=== PATIENT | female | born 1945 | race Caucasian/White ===

== ENCOUNTER → 2024-10-29 | Outpatient (CLI) | payer MEDICARE, SELFPAY ==
--- NOTE | 2024-10-29 09:45 | XR_ITS ---
Examination: Screening digital mammography, bilateral Computer aided detection 3-D breast Tomosynthesis, bilateral Date and time of exam: October 29, 2024 1002 hours Compared to mammograms dating to April 14, 2018 Indication: Screening Technique: Nonmagnified MLO, CC views of the breasts to been obtained, reconstructed from 3-D Tomosynthesis images. R2 computer aided detection program utilized for evaluation of suspicious masses and/or abnormal calcifications. 3-D Tomosynthesis images obtained. Findings: Scattered areas of fibroglandular density. Benign calcifications. No interval suspicious masses Impression: BI-RADS category II: Benign Findings. Recommend 1 year follow-up mammogram.
[2024-10-29 10:36] LABS: Basophils # (Auto) 0.1 Thou/mm3 (0.0-0.2); Basophils % (Auto) 1 % (0-2.5); Eosinophils # (Auto) 0.2 Thou/mm3 (0.0-0.5); Eosinophils % (Auto) 3 % (0-10); Hematocrit 37.5 % (36.0-46.0); Hemoglobin 12.6 g/dL (12.0-16.0); Immature Granulocytes % (Auto) 0 % (0-0); Immature Granulocytes Auto 0.03 Thou/mm3 (0.00-0.00); Lymphocytes # (Auto) 2.2 Thou/mm3 (1.0-4.8); Lymphocytes % (Auto) 30 % (10-50); Mean Corpuscular HGB Conc 33.6 g/dl (31.0-37.0); Mean Corpuscular Hemoglobin 28.1 pg (25.0-35.0); Mean Corpuscular Volume 84 fL (80-100); Monocytes % (Auto) 13 % (0-12); Neutrophils # (Auto) 3.9 Thou/mm3 (1.8-7.7); Neutrophils % (Auto) 52 % (37-80); Nucleated Red Blood Cell % 0 /100 WBC (0); Platelet Count 234 Thou/mm3 (140-440); RDW Standard Deviation 42.4 fL (36.4-46.3); Red Blood Count 4.48 Miln/mm3 (4.00-5.20); White Blood Count 7.4 Thou/mm3 (3.6-11.0)
[2024-10-29 10:50] LABS: T4 (Thyroxine) 7.1 mcg/dL (4.5-10.9)
[2024-10-29 10:57] LABS: Alanine Aminotransferase 28 U/L (10-49); Albumin, Serum 4.3 gm/dL (3.4-4.8); Albumin/Globulin Ratio 1.7 (1.2-2.2); Alkaline Phosphatase 83 U/L (46-116); Anion Gap 9 (7-16); Aspartate Amino Transferase 32 U/L (0-34); BUN/Creatinine Ratio 18 Ratio (12-20); Bilirubin,Total 0.4 mg/dL (0.3-1.2); Blood Urea Nitrogen 20 mg/dL (9-23); Calcium 9.1 mg/dL (8.3-10.6); Calcium (Corrected) 9.1 mg/dL (8.5-10.1); Carbon Dioxide 26.2 mMol/L (20.0-31.0); Cardiac Risk Estimate 3.7 RATIO (3.7-5.6); Chloride 102 mMol/L (98-107); Cholesterol 195 mg/dL (132-200); Creatinine (Component) 1.1 mg/dL (0.6-1.3); Globulin 2.5 gm/dL (2.3-3.5); Glucose 91 mg/dL (74-106); HDL Cholesterol 53 mg/dL (40-60); LDL Cholesterol,Calculated 110 mg/dL (0-130); Osmolality,Calculated 276 (275-295); Potassium 4.4 mMol/L (3.4-5.1); Sodium 137 mMol/L (136-145); Thyroid Stimulating Hormone 2.26 uIU/mL (0.55-4.78); Total Protein 6.8 gm/dL (5.7-8.2); Triglycerides 158 mg/dL (30-150); eGFR 51 See Note
== END | disposition home or self-care (01) ==
LOC: CDIM 09:50 → COPL 10:09
PROVIDERS: Referring Provider Family Medicine; Visit Provider Radiology Diagnostic Radiology
DX: Z12.31 Encounter for screening mammogram for malignant neoplasm of breast (principal); R92.8 Other abnormal and inconclusive findings on diagnostic imaging of breast; R92.323 Mammographic fibroglandular density, bilateral breasts; I12.9 Hypertensive chronic kidney disease with stage 1 through stage 4 chronic kidney disease, or unspecified chronic kidney disease; N18.1 Chronic kidney disease, stage 1; N95.1 Menopausal and female climacteric states; K21.9 Gastro-esophageal reflux disease without esophagitis; N39.490 Overflow incontinence
CPT/HCPCS: 36415; 77063; 77067; 80053; 80061; 84436; 84443; 85025

== ENCOUNTER → 2024-11-04 | Outpatient (CLI) | payer MEDICARE, SELFPAY ==
[2024-11-08 07:36] LABS: Fecal Globin Result NOT DETECTED (NOT DETECTED)
== END | disposition home or self-care (01) ==
LOC: SLDO 11:57
PROVIDERS: PCP Family Medicine; Referring Provider Family Medicine; Visit Provider Family Medicine
DX: Z12.11 Encounter for screening for malignant neoplasm of colon (principal)
CPT/HCPCS: 82274; G0328

== ENCOUNTER 2025-06-02 09:50 | Inpatient (IN) | payer MEDICARE, SELFPAY ==
[2025-06-02] VITALS (12 sets, daily range): BP systolic 130–156; BP diastolic 63–97; PULSE 74–87; RESP 17–30; TEMP 36.5–36.9; O2SAT 92–95; BMI 30.1; BMI 30.4
--- NOTE | 2025-06-02 10:00 | EKG_ITS ---
[facility] (Formerly [facility]) Test Date: 2025-06-02 Pat Name: OLIVER MEYERS Department: Room: - Gender: Female [employer]: : 1946-05-21 Requested By: Kaleb Reynaga Order Number: [id number] Reading MD: Kaleb Reynaga Measurements Intervals [place] Rate: 72 P: 45 AK: 144 QRS: 31 QRSD: 89 T: 36 QT: 388 QTc: 426 Interpretive Statements SINUS RHYTHM No previous ECG available for comparison /store/S0/[id number].pdf
[2025-06-02] MEDS: SODIUM CHLORIDE 0.9% 1000 ML 1,000 ML 100 ML IV (10:25)
--- NOTE | 2025-06-02 10:29 | XR_ITS ---
Examination: CT brain head without contrast. 2-D sagittal coronal reconstructions Date and time of exam: 06/02/2025 at 10:44 a.m. CTDI: vol (mGy): 50.1 DLP: (mGycm): 978 CLINICAL HISTORY: Stroke alert, syncope with traumatic fall Technique: Multiple CT axial sections of the brain have been obtained, 5 mm slice thickness. Contrast has not been administered. 2-D sagittal, coronal reconstructions have been obtained Low dose protocols were performed. One or more of the following dose reduction techniques were used; automated exposure control, adjustment of the mA and/or KV according to patient size, use of iterative reconstruction technique. Findings: There is fairly prominent dilatation of the lateral and third ventricles, considered slightly prominent for this patient's age of 79 years. There are small calcifications in the globus pallidus bilaterally, and normal degenerative finding. There is very widespread and extensive patchy decreased density noted throughout the periventricular and subcortical white matter bilaterally. There is extensive atherosclerotic vascular calcification in the distal vertebral arteries and in both internal carotid arteries in the region of the cavernous sinus The paranasal sinuses and mastoids and inner ear structures appear normal. However there are exceptionally tiny dependent fluid collections noted in both right and left sphenoid sinuses, of doubtful concern. Pituitary gland appears normal. Impression: 1. There is prominent dilatation of the lateral and third ventricles, they are in normal midline position. 2 there is widespread patchy abnormal decreased density noted involving the entire cerebral white matter. I do not see anything suggestive for an acute infarct however. These findings relate to extensive microvascular angiopathy in this 79-year-old patient.. There is also heavy vascular calcification in the internal carotid artery siphons and the distal vertebral arteries bilaterally. 3 study is otherwise negative, no definite evidence of an acute infarct can be identified
--- NOTE | 2025-06-02 10:29 | XR_ITS ---
Examination: CTA carotids with intravenous contrast CTA brain, head with intravenous contrast. 2-D sagittal, coronal reconstructions. 3-D reconstructions. Exam date and time: 06/02/2025 at 10:40 8:00 a.m. CTDI: vol (mGy) 17 point DLP: (mGycm) 444 CLINICAL INDICATION: Syncope after traumatic fall. Technique: Multiple CTA axial brain, head carotid images post intravenous contrast injection 75 cc, [id number]. 2-D sagittal, coronal reconstructions. 3-D reconstructions, 3-D post processing including vascular maximum intensity projection images. Low dose protocols were performed. One or more of the following dose reduction techniques were used; automated exposure control, adjustment of the mA and/or KV according to patient size, use of iterative reconstruction technique. Findings: The origin of the carotid and vertebral arteries is well seen and normal on both sides. The common carotid arteries in the neck appear normal. At the carotid artery bifurcations in the neck, on the right side there is major very extensive atherosclerotic calcification noted. I am not able to identify any significant narrowing, but the appearance here is quite worrisome. There is also prominent although less significant atherosclerotic calcification at the bifurcation of the left common carotid artery. However I am not able to see any definite area of significant narrowing on these images. The internal carotid arteries appear normal throughout the upper half of the neck, then within the cavernous sinus there is prominent atherosclerotic calcifications on both sides, no obvious significant narrowing is noted. Within the head, the proximal and peripheral portions of the anterior and middle cerebral arteries is entirely normal. In the posterior circulation, the vertebral arteries extend upwards through the foramina transversarium in a normal fashion, and a come together at the base of the clivus forming the basilar artery. The basilar artery and its branches all appear normal in the posterior fossa. IMPRESSION: 1. Within the cervical region, the only abnormality seen are very heavy the atherosclerotic calcifications at the bifurcation of the common carotid arteries on both sides. I am not able to see any definite vascular narrowing, however particularly on the right side, with this extent of atherosclerotic calcification it is still felt to be a potentially worrisome finding. 2. Within the head, likewise do not see any areas of abnormal vascular narrowing anywhere, however there is exceedingly heavy atherosclerotic calcification of both the right and left internal carotid arteries in the cavernous sinus. However I'm not able to see any definite abnormal narrowing of these vessels. 3. No abnormalities are seen at all in the posterior circulation, including the vertebral arteries in the neck and the basilar arteries and its branches in the posterior fossa
[2025-06-02 10:48] LABS: Basophils # (Auto) 0.0 Thou/mm3 (0.0-0.2); Basophils % (Auto) 0 % (0-2.5); Eosinophils # (Auto) 0.0 Thou/mm3 (0.0-0.5); Eosinophils % (Auto) 0 % (0-10); Hematocrit 23.1 % (36.0-46.0); Immature Granulocytes Auto 0.02 Thou/mm3 (0.00-0.00); Lymphocytes # (Auto) 0.8 Thou/mm3 (1.0-4.8); Lymphocytes % (Auto) 29 % (10-50); Mean Corpuscular HGB Conc 32.0 g/dl (31.0-37.0); Mean Corpuscular Hemoglobin 28.4 pg (25.0-35.0); Mean Corpuscular Volume 89 fL (80-100); Monocytes # (Auto) 0.4 Thou/mm3 (0.0-0.8); Monocytes % (Auto) 14 % (0-12); Neutrophils # (Auto) 1.5 Thou/mm3 (1.8-7.7); Neutrophils % (Auto) 56 % (37-80); Nucleated Red Blood Cell # 0.00 Thou/mm3 (0.00-0.00); Nucleated Red Blood Cell % 0 /100 WBC (0); Platelet Count 85 Thou/mm3 (140-440); RDW Standard Deviation 45.5 fL (36.4-46.3); Red Blood Count 2.61 Miln/mm3 (4.00-5.20); White Blood Count 2.7 Thou/mm3 (3.6-11.0)
[2025-06-02 10:55] LABS: Hemoglobin 7.4 g/dL (12.0-16.0)
[2025-06-02 11:00] LABS: B-Type Natriuretic Peptide 52 pg/mL (0-100)
[2025-06-02 11:03] LABS: Alanine Aminotransferase 39 U/L (10-49); Albumin, Serum 4.5 gm/dL (3.4-4.8); Albumin/Globulin Ratio 1.7 (1.2-2.2); Alcohol, Blood Medical < 3.0 mg/dL (0-10.0); Alkaline Phosphatase 65 U/L (46-116); Anion Gap 11 (7-16); Aspartate Amino Transferase 60 U/L (0-34); BUN/Creatinine Ratio 10 Ratio (12-20); Bilirubin,Total 0.3 mg/dL (0.3-1.2); Blood Urea Nitrogen 13 mg/dL (9-23); Calcium 9.1 mg/dL (8.3-10.6); Calcium (Corrected) 9.1 mg/dL (8.5-10.1); Carbon Dioxide 27.7 mMol/L (20.0-31.0); Chloride 98 mMol/L (98-107); Creatinine (Component) 1.3 mg/dL (0.6-1.3); Estimated Creatinine Clearance 35.1 mL/min (>60); Globulin 2.6 gm/dL (2.3-3.5); Glucose 135 mg/dL (74-106); INR 1.0 (0.9-1.3); Magnesium 1.8 mg/dL (1.6-2.6); Osmolality,Calculated 275 (275-295); Partial Thromboplastin Time 27.8 Seconds (22.0-36.0); Potassium 4.4 mMol/L (3.4-5.1); Prothrombin Time 10.5 Seconds (9.0-12.2); Sodium 137 mMol/L (136-145); Total Protein 7.1 gm/dL (5.7-8.2); Troponin I < 0.020 ng/mL (0.0-0.045); eGFR 42 See Note
--- NOTE | 2025-06-02 11:19 | PD.TNEURO ---
Tele Neuro Consultation Consultation Date 06/02/25 Most Recent Vital Signs Last Vital Signs Temp 97.7 F 06/02/25 10:11 Pulse 74 06/02/25 10:48 Resp 17 06/02/25 10:11 BP 130/74 06/02/25 10:11 Pulse Ox 94 L 06/02/25 10:11 O2 Del Method Room Air 06/02/25 10:11 Laboratory-Coagulation Panel PT 10.5 Seconds (9.0-12.2) 06/02/25 10:37 INR 1.0 (0.9-1.3) 06/02/25 10:37 APTT 27.8 Seconds (22.0-36.0) 06/02/25 10:37 Consultation Narrative [facility] Tele[facility]rology Consult [facility] Patient Name:???Susie Rhodes Date of :???05/21/1946 Identification Number:??? Date of Service:???06/02/2025 10:26:13 Diagnosis:?R55 - Syncope (blackout, fainting, vasovagal attack) ?R29.6 - Fall Repeated Impression: ?Patient came with syncopal episodes. She has been dealing with flu for the past 5 to 7 days. Appears weak all over. Is very hard to determine whether she has any clear-cut focal deficits but on bedside testing she was able to lift both arms and legs off the bed there was no drift. The timeline of symptoms is also unclear. She would need to be admitted for further workup of syncope/TIA. I would recommend getting an MRI of the head and neurology follow-up. Will also recommend starting her on an aspirin 81 daily. She would also need metabolic workup to rule out other causes. It is important to note that this was the initial consultation for stroke alert and rest of the workup would be by in-house team. Our recommendations are outlined below. Recommendations: ? Stroke/Telemetry Floor ? Neuro Checks (Q2) ? Bedside Swallow Eval ? DVT Prophylaxis ? IV Fluids, Normal Saline ? Head of Bed 30 Degrees ? Euglycemia and Avoid Hyperthermia (PRN Acetaminophen) ? Initiate or continue Aspirin 81 MG daily ? Antihypertensives PRN if Blood pressure is greater than 220/120 or there is a concern for End organ damage/contraindications for permissive HTN. If blood pressure is greater than 220/120 give labetalol PO or IV or Vasotec IV with a goal of 15% reduction in BP during the first 24 hours. Sign Out: ? Discussed with Emergency Department Provider Advanced Imaging: CTA Head and Neck Completed. LVO:No Patient is not a candidate for FUENTES Metrics: Last Known Well: Unknown Arrival Time: 06/02/2025 09:50:00 Activation Time: 06/02/2025 10:26:13 Initial Response Time: 06/02/2025 10:28:00Symptoms: Syncope/falls. Initial patient interaction: 06/02/2025 10:49:20 NIHSS Assessment Completed: 06/02/2025 10:58:22Patient is not a candidate for Thrombolytic. Thrombolytic Medical Decision: 06/02/2025 10:58:24Patient was not deemed candidate for Thrombolytic because of following reasons: LKW outside 4.[address] Head: CT head unremarkable for acute infarction or hemorrhage per Radiology: Reported as negative Primary Provider Notified of Diagnostic Impression and Management Plan on: 06/02/2025 10:54:36 History of Present Illness:Patient is a 79 year old Female. Patient was brought by private transportation with symptoms of Syncope/falls. 79-year-old female with history of hypertension and macular degeneration, who lives by herself has been dealing with flu for the past 5 to 7 days. Has been feeling very weak and tired. Reportedly had 2 syncopal episodes in the past few days. Because of this she was brought into the hospital. There was a questionable facial droop and left leg weakness noted. We do not have a clear-cut timeline for the symptoms. Patient lives by herself and was brought in by the [id number]. Patient denies any focal weakness. She feels globally weak. Denies any chest pain or palpitation. Denies any speech or swallowing problems. Past Medical History: ?Hypertension Other PMH:? Macular degeneration Medications: No Anticoagulant use? No Antiplatelet use Reviewed EMR for current medications Allergies:? Reviewed Social History: Patient Is: Single Smoking: No Alcohol Use: No Drug Use: No Family History: There is no family history of premature cerebrovascular disease pertinent to this consultation ROS : 14 Points Review of Systems was performed and was negative except mentioned in HPI. Past Surgical History: There Is No Surgical History Contributory To Today?s Visit Examination: BP(130/74),?Pulse(75), 1A: Level of Consciousness - Alert; keenly responsive?+ 0 1B: Ask Month and Age - Both Questions Right?+ 0 1C: Blink Eyes & Squeeze Hands - Performs Both Tasks?+ 0 2: Test Horizontal Extraocular Movements - Normal?+ 0 3: Test Visual Taylor - No Visual Loss?+ 0 4: Test Facial Palsy (Use Grimace if Obtunded) - Normal symmetry?+ 0 5A: Test Left Arm Motor Drift - No Drift for 10 Seconds?+ 0 5B: Test Right Arm Motor Drift - No Drift for 10 Seconds?+ 0 6A: Test Left Leg Motor Drift - No Drift for 5 Seconds?+ 0 6B: Test Right Leg Motor Drift - No Drift for 5 Seconds?+ 0 7: Test Limb Ataxia (FNF/Heel-Welsh) - No Ataxia?+ 0 8: Test Sensation - Normal; No sensory loss?+ 0 9: Test Language/Aphasia - Normal; No aphasia?+ 0 10: Test Dysarthria - Normal?+ 0 11: Test Extinction/Inattention - No abnormality?+ 0 NIHSS Score:?0 NIHSS Free Text :?Global weakness Pre-Morbid Modified Socrates Scale: 1 Points = No significant disability despite symptoms; able to carry out all usual duties and activities Spoke with :?Dr Cochran This consult was conducted in real time using interactive audio and video technology. Patient was informed of the technology being used for this visit and agreed to proceed. Patient located in hospital and provider located at home/office setting. Patient is being evaluated for possible acute neurologic impairment and high probability of imminent or life-threatening deterioration. I spent total of 45 minutes providing care to this patient, including time for face to face visit via telemedicine, review of medical records, imaging studies and discussion of findings with providers, the patient and/or family. Dr David Reynolds [facility] For Inpatient follow-up with [facility] physician please call [facility] at . As we are not an outpatient service for any post hospital discharge needs please contact the hospital for assistance. If you have any questions for the [facility] physicians or need to reconsult for clinical or diagnostic changes please contact us via [facility] at . Non-radiologist review of imaging performed to assist with emergent clinical decision-making. Remote physician workstations do not possess the same resolution, calibration, or diagnostic capabilities as hospital-based radiology reading stations, and formal radiologist read is necessary. Signature :Isaura Reynolds
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
[2025-06-02 13:57] LABS: Collection Type, Urine Catheter
[2025-06-02 14:12] LABS: Amphetamine/Methamp Scrn,U Negative (Negative); Barbiturate Screen,Urine Negative (Negative); Benzodiazepines Screen,Urine Negative (Negative); Benzoylecgonine Screen, Ur Negative (Negative); Fentanyl Screen,Urine Negative (Negative); Opiate Screen,Urine Negative (Negative); THC Screen,Urine Negative (Negative)
[2025-06-02 14:19] LABS: Bilirubin,Urine Negative (Negative); Blood,Urine Negative (Negative); Clarity,Urine Clear (Clear/Hazy); Color,Urine Lt-Yellow (Lt Yel-Yel); Glucose, Urine Negative (Negative); Ketones,Urine Trace (Negative); Leukocyte Esterase,Urine Negative (Negative); Nitrite,Urine Negative (Negative); PH,Urine 7.0 (5.0-7.0); Protein,Urine Negative (Neg - Trace); RBC,Urine 6 /hpf (0-3); Squamous Epithelial Cell,Urine 2 /hpf (0-5); Urobilinogen,Urine Negative mg/dL (0.0-1.0); WBC,Urine 1 /hpf (0-5)
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
[2025-06-02 14:31] LABS: Specific Gravity,Urine 1.010 (1.001-1.035)
--- NOTE | 2025-06-02 14:40 | ECHO_ITS ---
Patient Info Name: Susie Rhodes Age: 79 years : 1945 Gender: Female Ht: 160 cm Wt: 77 kg BSA: 1.88 m2 BP: 159 / 78 mmHg HR: 77 bpm Exam Date: 06/03/2025 7:08 AM Admit Date: 06/02/2025 Site: [facility] Room Number: [id number] Patient Status: I Exam Type: CA echo doppler complete Dyeing Machine Back Tender: Blanche Danielle Ordering Physician: Steve Meehan Study Info Indications syncope workup - Primary Location: [id number] Left Ventricular Outflow Tract Name Value Normal LVOT 2D LVOT Diameter 1.9 cm LVOT Doppler LVOT Peak Velocity 141 cm/s LVOT Mean Gradient 4 mmHg LVOT VTI 34 cm LVOT VTI/AV VTI Ratio 0.4 LVOT Stroke Volume 97 ml Pulmonic Valve Name Value Normal PV Doppler PV Peak Velocity 132 cm/s Mitral Valve Name Value Normal MV Doppler MV Mean Gradient 6 mmHg MV Decel York 793 cm/s2 MV PHT 63 ms MV Area (PHT) 3.5 cm2 4.0-5.0 MV Area (Cont Eq VTI) 1.5 cm2 MV Diastolic Function MV E Peak Velocity 173 cm/s MV A Peak Velocity 149 cm/s MV E/A 1.2 MV Annular TDI MV Septal e' Velocity 5.3 cm/s MV E/e' (Septal) 32.5 MV Lateral e' Velocity 4.2 cm/s MV E/e' (Lateral) 40.8 MV e' Average 4.79 cm/s MV E/e' (Average) 36.6 Tricuspid Valve Name Value Normal TV Regurgitation Doppler TR Peak Velocity 321 cm/s Estimated PAP/RSVP RA Pressure 3 mmHg <=5 PA Systolic Pressure 44 mmHg <36 RV Systolic Pressure 44 mmHg <36 Aortic Valve Name Value Normal AV 2D/MM AV Cusp Sep (MM) 1.0 cm AV Doppler AV Peak Velocity 321 cm/s AV Mean Gradient 24 mmHg AV VTI 84 cm AV Area (Cont Eq VTI) 1.2 cm2 >=3.0 AV Area (Cont Eq Earl) 1.2 cm2 AV DI (Earl) 0.44 AV Regurgitation 2D LVOT Area 2.8 cm2 AV Regurgitation Doppler AR Decel [place] 218 cm/s2 AR PHT 431 ms Ventricles Name Value Normal LV Dimensions 2D/MM IVS Diastolic Thickness (2D) 1.0 cm 0.6-0.9 LVID Diastole (2D) 4.2 cm 3.8-5.2 LVIW Diastolic Thickness (2D) 1.1 cm 0.6-0.9 LVID Systole (2D) 3.1 cm 2.2-3.5 LVOT Diameter 1.9 cm LV Mass (2D Cubed) 147.00 g 67.00-162.00 LV Mass Index (2D Cubed) 78 g/m2 43-95 Relative Wall Thickness (2D) 0.52 <=0.42 IVS/LVIW Diastolic Thickness (2D) 0.91 0.00-1.50 LV Fractional Shortening/Ejection Fraction 2D/MM LV Fractional Shortening (2D) 26 % 27-45 LV EF (2D Teichholz) 52 % Atria Name Value Normal LA Dimensions LA Volume (4C A-L) 108 ml LA Volume (BP A-L) 104 ml Left Ventricle Left ventricular chamber dimension is normal. Left ventricular systolic function is normal with visually estimated ejection fraction of 55-60%. There is mild concentric hypertrophy noted in the left ventricle. Left ventricular segmental wall motion is normal. There is normal diastolic function in the left ventricle. Right Ventricle Right ventricular chamber dimension is normal. Right ventricular systolic function is normal. Left Atrium Left atrial chamber dimension is moderately enlarged. Right Atrium Right atrial chamber dimension is normal. Aortic Valve The aortic valve is trileaflet. There is moderate aortic valve sclerosis. There is moderate aortic valve stenosis with a peak velocity of 321 cm/s, mean gradient of 24 mmHg, and aortic valve area of 1.2 cm2. There is mild to moderate aortic valve regurgitation. Pulmonic Valve The pulmonic valve is normal. There is no pulmonic valve stenosis. There is trace pulmonic regurgitation. Mitral Valve The mitral valve has calcified leaflets. There is mild mitral valve stenosis. There is mild mitral valve regurgitation. Tricuspid Valve The tricuspid valve leaflets are normal. There is no tricuspid valve stenosis. There is mild tricuspid valve regurgitation. Pulmonary hypertension, estimated pulmonary arterial systolic pressure is 44 mmHg and systemic blood pressure of 159 mmHg in systole. Pericardium/Pleural The pericardium appears normal. There is no pericardial effusion. No pleural effusion visualized. Inferior Vena Cava Normal inferior vena cava with >50% collapse upon inspiration consistent with normal right atrial pressure, 3 mmHg. Aorta The aortic measurements are indexed to age and body surface area. The aortic root at the sinus of Valsalva is not well visualized. The prox ascending aorta is not well visualized. Summary 1. Left ventricle size is normal and systolic function is normal. Estimated ejection fraction is 55-60%. There is normal diastolic function. There is mild concentric hypertrophy noted. 2. Right ventricle chamber size is normal and systolic function is normal. Estimated RVSP is 44 mmHg with RAP 3. Estimated PHTN Moderate. 3. There is moderate aortic valve sclerosis with moderate stenosis and mild to moderate regurgitation. 4. The mitral valve has calcified leaflets. 5. There is mild mitral and tricuspid valve regurgitation. Mild MAC. 6. trace pulmonic valve regurgitation. 7. The left atrium is moderately enlarged. The right atrium is normal. 8. Normal IVC with estimated RA pressure 3 mmHg. Report Signatures Finalized by Tobin Hogan on 06/03/2025 10:32 AM
[2025-06-02] MEDS: ASPIRIN EC 81 MG TABEC PO (15:14)
[2025-06-02] MEDS: RINGERS LACTATED 1000 ML 1,000 ML 125 ML IV ×2 (15:14→23:30)
[2025-06-02] MEDS: HEPARIN SOD INJ 5000 UNIT/ML VIAL SC (15:15)
[2025-06-02 16:50] LABS: Ferritin 314 ng/mL (7.3-270.7)
[2025-06-02 16:53] LABS: Folate > 24.00 ng/mL (>5.38); Vitamin B12 1509 pg/mL (211-911)
[2025-06-02] MEDS: BENZONATATE 100 MG CAPSULE PO (18:43)
[2025-06-02] MEDS: ACETAMINOPHEN 325 MG TABLET 650 MG PO (21:15)
[2025-06-03] VITALS (10 sets, daily range): BP systolic 157–183; BP diastolic 76–90; PULSE 75–102; RESP 18–96; TEMP 36.2–36.6; O2SAT 94–100
--- NOTE | 2025-06-03 | XR_ITS ---
Examinations: MRI Brain without intravenous contrast. MRA brain without intravenous contrast. MRA carotids without intravenous contrast 3-D vascular reconstructions Date and time of exam: June 03, 2025, 0849 hours INDICATIONS: Syncopal episodes beginning yesterday stroke alert Technique: Multiple axial and sagittal images of the brain have been obtained MRA brain carotid images without contrast obtained, including 3-D postprocessing, vascular maximum intensity projection images Findings: [place] is not enlarged. The optic chiasm and infundibular stalk are not remarkable. Prepontine and interpeduncular cisterns are not enlarged. No localized enlargement of the medulla or daya. Fourth ventricle and cerebellar tonsils normal in position. Subacute hemorrhage is not seen. Fourth ventricle is midline. Mass in the cerebellopontine angle region is not evident. 7th and 8th nerve complexes exhibits symmetry. Globes are symmetrical with no retro-orbital mass. Increased white matter signal prominent Diffusion-weighted images demonstrate no focus of restricted diffusion Mass-effect upon the ventricular system is not identified. MRA carotid images no critical carotid stenoses. MRA brain images no cerebral large vessel occlusions Impression: Negative for acute hemorrhage mass effect or midline shift No acute infarct Prominent chronic microvascular white matter change No carotid stenoses No cerebral large vessel arterial occlusions
[2025-06-03] MEDS: HEPARIN SOD INJ 5000 UNIT/ML VIAL SC (01:59)
[2025-06-03] MEDS: BENZONATATE 100 MG CAPSULE 200 MG PO (02:01)
[2025-06-03 05:36] LABS: Basophils # (Auto) 0.0 Thou/mm3 (0.0-0.2); Basophils % (Auto) 0 % (0-2.5); Eosinophils # (Auto) 0.0 Thou/mm3 (0.0-0.5); Eosinophils % (Auto) 1 % (0-10); Hematocrit 36.0 % (36.0-46.0); Hemoglobin 12.1 g/dL (12.0-16.0); Immature Granulocytes Auto 0.01 Thou/mm3 (0.00-0.00); Immature Reticulocyte Fraction 9.0 % (3.0-15.9); Lymphocytes # (Auto) 2.0 Thou/mm3 (1.0-4.8); Lymphocytes % (Auto) 46 % (10-50); Mean Corpuscular HGB Conc 33.6 g/dl (31.0-37.0); Mean Corpuscular Hemoglobin 27.8 pg (25.0-35.0); Mean Corpuscular Volume 83 fL (80-100); Monocytes # (Auto) 0.8 Thou/mm3 (0.0-0.8); Monocytes % (Auto) 18 % (0-12); Neutrophils # (Auto) 1.5 Thou/mm3 (1.8-7.7); Neutrophils % (Auto) 35 % (37-80); Nucleated Red Blood Cell # 0.00 Thou/mm3 (0.00-0.00); Nucleated Red Blood Cell % 0 /100 WBC (0); Path Review Blood Smear Sent to Pathologist; Platelet Count 180 Thou/mm3 (140-440); RDW Standard Deviation 42.2 fL (36.4-46.3); Red Blood Count 4.35 Miln/mm3 (4.00-5.20); Reticulocyte % (Auto) 0.7 % (0.5-1.5); Reticulocyte Absolute Auto 28.7 Biln/L (25.0-75.0); Reticulocyte Hgb Content 30.0 pg (28.0-35.0); White Blood Count 4.2 Thou/mm3 (3.6-11.0)
[2025-06-03 05:55] LABS: Glucose Estimated Average 123 mg/dL (80-131); Hemoglobin A1C 5.9 % Hgb (4.8-6.0)
[2025-06-03 06:06] LABS: Alanine Aminotransferase 32 U/L (10-49); Albumin, Serum 3.8 gm/dL (3.4-4.8); Albumin/Globulin Ratio 1.7 (1.2-2.2); Alkaline Phosphatase 57 U/L (46-116); Anion Gap 11 (7-16); Aspartate Amino Transferase 46 U/L (0-34); BUN/Creatinine Ratio 16 Ratio (12-20); Bilirubin,Total 0.4 mg/dL (0.3-1.2); Blood Urea Nitrogen 16 mg/dL (9-23); Calcium 8.6 mg/dL (8.3-10.6); Calcium (Corrected) 8.8 mg/dL (8.5-10.1); Carbon Dioxide 26.9 mMol/L (20.0-31.0); Cardiac Risk Estimate 3.6 RATIO (3.7-5.6); Chloride 102 mMol/L (98-107); Cholesterol 150 mg/dL (132-200); Creatinine (Component) 1.0 mg/dL (0.6-1.3); Estimated Creatinine Clearance 45.9 mL/min (>60); Globulin 2.3 gm/dL (2.3-3.5); Glucose 83 mg/dL (74-106); HDL Cholesterol 42 mg/dL (40-60); LDH (Lactate Dehydrogenase) 242 U/L (120-246); LDL Cholesterol,Calculated 81 mg/dL (0-130); Magnesium 1.6 mg/dL (1.6-2.6); Osmolality,Calculated 279 (275-295); Phosphorous 2.8 mg/dL (2.4-5.1); Potassium 3.8 mMol/L (3.4-5.1); Sodium 140 mMol/L (136-145); Thyroid Stimulating Hormone 1.95 uIU/mL (0.55-4.78); Total Protein 6.1 gm/dL (5.7-8.2); Triglycerides 133 mg/dL (30-150); eGFR 58 See Note
[2025-06-03 06:27] LABS: Ferritin 321 ng/mL (7.3-270.7); Iron 30 mcg/dL (50-170); Percent Iron Saturation 12 % (20-55); Total Iron Binding Capacity 236 mcg/dL (250-425); Unsaturated Iron Binding 206 (225-295)
[2025-06-03 07:48] LABS: Influenza A Ag Positive; Influenza B Ag Negative
[2025-06-03 07:49] LABS: Respiratory Syncytial Virus Ag Negative (Negative)
--- NOTE | 2025-06-03 09:14 | PC.SS ---
Follow up note: Pending MRI, speech valuation, and PT evaluation. Pt is flu positive.
[2025-06-03] MEDS: ASPIRIN EC 81 MG TABEC PO (09:44)
[2025-06-03] MEDS: RINGERS LACTATED 1000 ML 1,000 ML 125 ML IV (09:48)
[2025-06-03] MEDS: Magnesium Sulfate 2 GM Ivpb 2 GM/50 ML BAG IV (09:48)
--- NOTE | 2025-06-03 11:33 | PC.SS ---
SS spoke to dtr, Sameera regarding patient's d/c plan. Pt is alert/oriented. Pt was admitted for Syncope. Dtr confirmed patient's demographic and contact information is correct on her facesheet. Pt resides alone. Pt ambulates independently without assistance or DME. Pt is ok with all ADLs. Patient utilizes [facility] on [address]. Dtr, Sameera Hughes is patient's medical decision maker if she is unable. Per dtr, pt has an advance directive at home. SS provided verbal d/c options for home or SNF. Daughter's choice is for pt to return home upon d/c. Dtr can provide transportation home. Per dtr, pt follows up with PCP every 6 months and next appointment is in June. Per dtr, pt is not diabetic. Per dtr, pt is not followed by HH but if physician orders HH her preference is HH. D/C plan: Return home Next of Kin: Liana Hughes, daughter, phone# [phone] PCP: Dr. Isabela Salamanca Address: Correct on facesheet
[2025-06-03 11:49] LABS: Cocci Serology, IgM Negative (Negative)
[2025-06-03] MEDS: LOSARTAN POTASSIUM 25 MG TABLET PO (12:02)
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
--- NOTE | 2025-06-03 16:23 | PC.PT ---
PT eval only. Patient is xI with bed mobility, transfers, and ambulation. Patient is safe to ambulate to the bathroom and in the halls with 1 family member and a surgical mask due to her (+) flu result. RN made aware.
[2025-06-03] MEDS: PROMETHAZINE/DM SYRUP 5 ML DOSE PO ×2 (16:35→22:25)
--- NOTE | 2025-06-03 16:48 | PC.NURSE ---
Dr. Whalen made aware of B/P 178/83 and no further orders received
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
[2025-06-03] MEDS: ACETAMINOPHEN 325 MG TABLET 650 MG PO (22:24)
[2025-06-04] VITALS (11 sets, daily range): BP systolic 148–168; BP diastolic 70–82; PULSE 68–104; RESP 15–23; TEMP 35.9–36.9; O2SAT 93–99
[2025-06-04] MEDS: PROMETHAZINE/DM SYRUP 5 ML DOSE PO ×4 (03:54→21:58)
[2025-06-04 05:59] LABS: Basophils # (Auto) 0.0 Thou/mm3 (0.0-0.2); Basophils % (Auto) 0 % (0-2.5); Eosinophils # (Auto) 0.0 Thou/mm3 (0.0-0.5); Eosinophils % (Auto) 1 % (0-10); Hematocrit 36.2 % (36.0-46.0); Hemoglobin 12.1 g/dL (12.0-16.0); Immature Granulocytes Auto 0.03 Thou/mm3 (0.00-0.00); Lymphocytes # (Auto) 1.6 Thou/mm3 (1.0-4.8); Lymphocytes % (Auto) 30 % (10-50); Mean Corpuscular HGB Conc 33.4 g/dl (31.0-37.0); Mean Corpuscular Hemoglobin 27.8 pg (25.0-35.0); Mean Corpuscular Volume 83 fL (80-100); Monocytes # (Auto) 0.8 Thou/mm3 (0.0-0.8); Monocytes % (Auto) 15 % (0-12); Neutrophils # (Auto) 2.8 Thou/mm3 (1.8-7.7); Neutrophils % (Auto) 53 % (37-80); Nucleated Red Blood Cell # 0.00 Thou/mm3 (0.00-0.00); Nucleated Red Blood Cell % 0 /100 WBC (0); Platelet Count 160 Thou/mm3 (140-440); RDW Standard Deviation 42.3 fL (36.4-46.3); Red Blood Count 4.35 Miln/mm3 (4.00-5.20); White Blood Count 5.3 Thou/mm3 (3.6-11.0)
[2025-06-04 06:28] LABS: Alanine Aminotransferase 34 U/L (10-49); Albumin, Serum 3.7 gm/dL (3.4-4.8); Albumin/Globulin Ratio 1.6 (1.2-2.2); Alkaline Phosphatase 58 U/L (46-116); Anion Gap 11 (7-16); Aspartate Amino Transferase 50 U/L (0-34); BUN/Creatinine Ratio 10 Ratio (12-20); Bilirubin,Total 0.4 mg/dL (0.3-1.2); Blood Urea Nitrogen 9 mg/dL (9-23); Calcium 8.5 mg/dL (8.3-10.6); Calcium (Corrected) 8.7 mg/dL (8.5-10.1); Carbon Dioxide 27.3 mMol/L (20.0-31.0); Chloride 103 mMol/L (98-107); Creatinine (Component) 0.9 mg/dL (0.6-1.3); Estimated Creatinine Clearance 51.0 mL/min (>60); Globulin 2.3 gm/dL (2.3-3.5); Glucose 92 mg/dL (74-106); Magnesium 1.7 mg/dL (1.6-2.6); Osmolality,Calculated 279 (275-295); Phosphorous 3.2 mg/dL (2.4-5.1); Potassium 3.9 mMol/L (3.4-5.1); Sodium 141 mMol/L (136-145); Total Protein 6.0 gm/dL (5.7-8.2); eGFR > 60 See Note
[2025-06-04] MEDS: ASPIRIN EC 81 MG TABEC PO (08:00)
[2025-06-04] MEDS: LOSARTAN POTASSIUM 25 MG TABLET 50 MG PO (08:01)
[2025-06-04] MEDS: Magnesium Sulfate 2 GM Ivpb 2 GM/50 ML BAG IV (11:08)
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
[2025-06-04 14:48] LABS: Cocci Serology, IgG Negative (Negative)
--- NOTE | 2025-06-04 14:57 | RESP.EEG ---
EEG complete and ready to read
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
[2025-06-04] MEDS: BENZOCAINE/MENTHOL 1 LOZENGE PO (20:06)
[2025-06-04] MEDS: ENOXAPARIN SOD INJ 40 MG/0.4 ML SYRINGE SC (20:07)
[2025-06-05] VITALS: BP 171/87; PULSE 90; RESP 24; TEMP 36.6; O2SAT 95
[2025-06-05 04:00] VITALS: BP 141/74; PULSE 73; PULSE 98; RESP 30; TEMP 36.1; O2SAT 95
[2025-06-05 06:09] LABS: Basophils # (Auto) 0.0 Thou/mm3 (0.0-0.2); Basophils % (Auto) 0 % (0-2.5); Eosinophils # (Auto) 0.0 Thou/mm3 (0.0-0.5); Eosinophils % (Auto) 0 % (0-10); Hematocrit 34.1 % (36.0-46.0); Hemoglobin 11.3 g/dL (12.0-16.0); Immature Granulocytes Auto 0.03 Thou/mm3 (0.00-0.00); Lymphocytes # (Auto) 2.1 Thou/mm3 (1.0-4.8); Lymphocytes % (Auto) 25 % (10-50); Mean Corpuscular HGB Conc 33.1 g/dl (31.0-37.0); Mean Corpuscular Hemoglobin 27.5 pg (25.0-35.0); Mean Corpuscular Volume 83 fL (80-100); Monocytes # (Auto) 1.3 Thou/mm3 (0.0-0.8); Monocytes % (Auto) 16 % (0-12); Neutrophils # (Auto) 4.8 Thou/mm3 (1.8-7.7); Neutrophils % (Auto) 58 % (37-80); Nucleated Red Blood Cell # 0.00 Thou/mm3 (0.00-0.00); Nucleated Red Blood Cell % 0 /100 WBC (0); Platelet Count 170 Thou/mm3 (140-440); RDW Standard Deviation 41.9 fL (36.4-46.3); Red Blood Count 4.11 Miln/mm3 (4.00-5.20); White Blood Count 8.2 Thou/mm3 (3.6-11.0)
[2025-06-05 06:30] LABS: Alanine Aminotransferase 39 U/L (10-49); Albumin, Serum 3.8 gm/dL (3.4-4.8); Albumin/Globulin Ratio 1.7 (1.2-2.2); Alkaline Phosphatase 59 U/L (46-116); Anion Gap 10 (7-16); Aspartate Amino Transferase 51 U/L (0-34); BUN/Creatinine Ratio 9 Ratio (12-20); Bilirubin,Total 0.5 mg/dL (0.3-1.2); Blood Urea Nitrogen 8 mg/dL (9-23); Calcium 8.5 mg/dL (8.3-10.6); Calcium (Corrected) 8.7 mg/dL (8.5-10.1); Carbon Dioxide 27.4 mMol/L (20.0-31.0); Chloride 103 mMol/L (98-107); Creatinine (Component) 0.9 mg/dL (0.6-1.3); Estimated Creatinine Clearance 51.0 mL/min (>60); Globulin 2.2 gm/dL (2.3-3.5); Glucose 107 mg/dL (74-106); Magnesium 2.0 mg/dL (1.6-2.6); Osmolality,Calculated 277 (275-295); Phosphorous 3.5 mg/dL (2.4-5.1); Potassium 4.1 mMol/L (3.4-5.1); Sodium 140 mMol/L (136-145); Total Protein 6.0 gm/dL (5.7-8.2); eGFR > 60 See Note
[2025-06-05 08:00] VITALS: BP 169/84; PULSE 90; RESP 16; TEMP 37.3; O2SAT 94
[2025-06-05 08:21] VITALS: BP 169/84; PULSE 90
[2025-06-05] MEDS: LOSARTAN POTASSIUM 25 MG TABLET 100 MG PO (08:21)
[2025-06-05 08:22] VITALS: BP 169/84; PULSE 90
[2025-06-05] MEDS: ASPIRIN EC 81 MG TABEC PO (08:22)
--- NOTE | 2025-06-05 09:13 | PD.RESPRO ---
Documentation for date of: 06/05/25 Exam Vital Signs Temp Pulse Resp BP Pulse Ox O2 Del Method O2 Flow Rate 97.0 F 90 30 H 169/84 H 95 Room Air 1 06/05/25 04:00 06/05/25 08:22 06/05/25 04:00 06/05/25 08:22 06/05/25 04:00 06/05/25 00:00 06/04/25 16:00 Objective Labs 06/05/25 04:20 06/05/25 04:20 Labs: Laboratory Results - last 24 hr 06/03/25 06/05/25 04:35 04:20 WBC 8.2 D RBC 4.11 Hgb 11.3 L Hct 34.1 L MCV 83 MCH 27.5 MCHC 33.1 RDW Std Deviation 41.9 Plt Count 170 Neut % (Auto) 58 Lymph % (Auto) 25 [place] % (Auto) 16 H Eos % (Auto) 0 Baso % (Auto) 0 Neut # (Auto) 4.8 Lymph # (Auto) 2.1 [place] # (Auto) 1.3 H Eos # (Auto) 0.0 Baso # (Auto) 0.0 Immature Gran # (Auto) 0.03 H Absolute Nucleated RBC 0.00 Immature Gran % 0 Nucleated RBC % 0 Sodium 140 Potassium 4.1 Chloride 103 Carbon Dioxide 27.4 Anion Gap 10 BUN 8 L Creatinine 0.9 Estim Creat Clear Calc 51.0 L eGFR > 60 BUN/Creatinine Ratio 9 L Glucose 107 H Calculated Osmolality 277 Calcium 8.5 Corrected Calcium 8.7 Phosphorus 3.5 Magnesium 2.0 Total Bilirubin 0.5 AST 51 H ALT 39 Alkaline Phosphatase 59 Total Protein 6.0 Albumin 3.8 Globulin 2.2 L Albumin/Globulin Ratio 1.7 Coccidioides IgG Ab Negative Quality Measures Quality Measures stroke Suspected type of Stroke: Unknown at this time Tenecteplase given: Reason(s) Tenecteplase not given: Outside the time window not given Assessment & Plan Assessment Current Active Medications: Generic Name Dose Route Start Last Admin Trade Name Freq PRN Reason Stop Dose Admin Acetaminophen 650 mg 06/02/25 14:45 06/03/25 22:24 Acetaminophen 325 Mg Tablet PO 07/02/25 14:44 650 mg Q6HR PRN Administration PAIN (1-3) OR FEVER > 100.4 Amlodipine Besylate 10 mg 06/05/25 09:00 06/05/25 08:22 Amlodipine Besylate 5 Mg Tablet PO 07/05/25 08:59 10 mg QDAY ROHNDA Administration Aspirin 81 mg 06/03/25 09:00 06/05/25 08:22 Aspirin Ec 81 Mg Tabec PO 07/03/25 08:59 81 mg QDAY RHONDA Administration Benzocaine 1 lozenge 06/03/25 08:51 06/04/25 20:06 Benzocaine/Menthol 1 Lozenge PO 07/03/25 08:50 1 lozenge Q4HR PRN Administration COUGH OR CONGESTION Enoxaparin Sodium 40 mg 06/04/25 21:00 06/04/25 20:07 Enoxaparin Sod Inj 40 Mg/0.4 Ml Syringe SC 06/18/25 20:59 40 mg HS RHONDA Administration Fluoxetine HCl 20 mg 06/03/25 09:00 06/05/25 08:22 Fluoxetine Hcl 10 Mg Capsule PO 07/03/25 08:59 20 mg DAILY RHONDA Administration Hydralazine HCl 5 mg 06/03/25 17:27 Hydralazine Inj 20 Mg/Ml Vial IVP 07/03/25 17:26 Q4HR PRN SBP >180 Losartan Potassium 100 mg 06/05/25 09:00 06/05/25 08:21 Losartan Potassium 25 Mg Tablet PO 07/05/25 08:59 100 mg QDAY RHONDA Administration Neomycin/Polymyxin/Bacitracin 0 gm 06/02/25 14:45 06/04/25 16:44 Zhang/Poly/Della (Neosporin) Oint 15 Gm Tube TOP 06/09/25 14:44 1 appl DAILY RHONDA Administration Oseltamivir Phosphate 30 mg 06/03/25 21:00 06/04/25 20:14 Oseltamivir 30 Mg Capsule PO 06/10/25 20:59 Not Given BID RHONDA Promethazine HCl/Dextromethorphan 5 ml 06/03/25 14:42 06/04/25 21:58 Promethazine/Dm Syrup 5 Ml Dose PO 07/03/25 14:41 5 ml Q4HR PRN Administration COUGH Protocol
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
[2025-06-05] MEDS: PROMETHAZINE/DM SYRUP 5 ML DOSE PO (10:21)
== END 2025-06-05 10:46 | disposition home or self-care (01) | DRG 312 ==
LOC: SERX 14:05 → SERHOLD 14:59 → S3SX 16:31
PROVIDERS: Admitting Provider Student in an Organized Health Care Education/Training Program; Emergency Provider Family Medicine; PCP Family Medicine; Visit Provider Family Medicine
DX: R55 Syncope and collapse (principal); T31.10 Burns involving 10-19% of body surface with 0% to 9% third degree burns; D61.818 Other pancytopenia; Z87.891 Personal history of nicotine dependence; I10 Essential (primary) hypertension; H35.30 Unspecified macular degeneration; K21.9 Gastro-esophageal reflux disease without esophagitis; F39 Unspecified mood [affective] disorder; T22.20XA Burn of second degree of shoulder and upper limb, except wrist and hand, unspecified site, initial encounter; T21.21XA Burn of second degree of chest wall, initial encounter; T24.212A Burn of second degree of left thigh, initial encounter; T21.22XA Burn of second degree of abdominal wall, initial encounter; X10.0XXA Contact with hot drinks, initial encounter; J10.1 Influenza due to other identified influenza virus with other respiratory manifestations; I35.8 Other nonrheumatic aortic valve disorders; I70.0 Atherosclerosis of aorta; I95.1 Orthostatic hypotension; Z79.82 Long term (current) use of aspirin; Z79.899 Other long term (current) drug therapy; Z88.2 Allergy status to sulfonamides; J10.2 Influenza due to other identified influenza virus with gastrointestinal manifestations
CPT/HCPCS: 36415; 70450; 70496; 70498; 70544; 80053; 80061; 80307; 80320; 81001; 82607; 82728; 82746; 83036; 83540; 83550; 83615; 83735; 83880; 84100; 84443; 84484; 85025; 85046; 85610; 85730; 86331; 86635; 87077; 87086; 87186; 87502; 87634; 87635; 92610; 93005; 93306; 95816; 96360; 96361; 97162; 99285; A4649; J1644; J1650; J3475; J7030; J7120; Q9967; A9270; G0480